=== PATIENT | female | born 1990 | race Two or more races ===

== ENCOUNTER 2022-02-25 15:05 | Emergency (ER) | payer MEDICAID ==
[2022-02-25 15:43] LABS: HEMOGLOBIN 13.4 gm/dl (12.3-15.3); RED BLOOD COUNT 4.21 M/UL (4.00-5.10); WHITE BLOOD COUNT 3.9 K/UL (4.5-11.0)
[2022-02-25 16:07] LABS: BUN/CREATININE RATIO 23 (0-10)
[2022-02-25] MEDS ORDERED: NAPROXEN500 MG PO (19:46)
== END 2022-02-25 20:00 | disposition home or self-care (01) ==
LOC: ER1 15:05
PROVIDERS: Physician Assistant
DX: E87.6 Hypokalemia (principal); R10.32 Left lower quadrant pain
CPT/HCPCS: 80053; 81001; 83690; 84703; 85025; 99284; Q9967